=== PATIENT | male | born 1970 | race Hispanic/Latino ===

== ENCOUNTER 2021-02-15 07:41 | Day surgery (SDC) | payer BC ==
[2021-02-15] VITALS (7 sets, daily range): BP systolic 95–134; BP diastolic 42–72
[~2021-02-15] VITALS: Ht 185.4 cm; Wt 230.9 kg
[~2021-02-15 07:41] MED LIST: CHOL100053 PO; ENAL20TA18 PO; FERR325T22 PO; INSLAN SQ; METF-444 PO; SIMV40TA59 PO
[2021-02-15] MEDS ORDERED: INSU100V37 SQ (10:54)
[2021-02-15] MEDS ORDERED: AMLO-257 PO (10:54)
[2021-02-15] MEDS ORDERED: INSU100C6 SQ (10:54)
[2021-02-15] MEDS ORDERED: DULA1.5P SQ (10:54)
[2021-02-15] MEDS ORDERED: METF-446 PO (10:54)
[2021-02-15] MEDS ORDERED: PROPOFOL 10 MG/ML 20ML VIAL IV ONE (12:19)
== END 2021-02-15 13:25 | disposition home or self-care (01) ==
LOC: ENDO 07:41 → DAH 07:42 → ENDO 13:25
PROVIDERS: ATTEND Internal Medicine Gastroenterology
DX: Z12.11 Encounter for screening for malignant neoplasm of colon (principal); Z20.822 Contact with and (suspected) exposure to COVID-19; K57.30 Diverticulosis of large intestine without perforation or abscess without bleeding; I10 Essential (primary) hypertension; E11.8 Type 2 diabetes mellitus with unspecified complications; E66.01 Morbid (severe) obesity due to excess calories; E78.5 Hyperlipidemia, unspecified; E78.00 Pure hypercholesterolemia, unspecified; Z86.010 Personal history of colon polyps; Z87.891 Personal history of nicotine dependence; Z79.4 Long term (current) use of insulin; Z79.899 Other long term (current) drug therapy; Z68.44 Body mass index [BMI] 60.0-69.9, adult; Z79.82 Long term (current) use of aspirin
CPT/HCPCS: 45378; 82948; 87635; A4215; A4221; A4222; A4223; A4606; A4620; A4663; C9803; J2704; G0105

== ENCOUNTER → 2021-11-28 | Outpatient (CLI) | payer OTHER ==
[~2021-11-28] MED LIST changes: +AMLO-257 PO; -CHOL100053 PO; +DULA1.5P SQ; -FERR325T22 PO; -INSLAN SQ; +INSU100C6 SQ; +INSU100V37 SQ; -METF-444 PO; +METF-446 PO
== END ==
LOC: DTH 12:04
PROVIDERS: ATTEND Surgery
DX: E66.01 Morbid (severe) obesity due to excess calories (principal); I10 Essential (primary) hypertension; M19.91 Primary osteoarthritis, unspecified site; E11.9 Type 2 diabetes mellitus without complications; K76.0 Fatty (change of) liver, not elsewhere classified; E78.00 Pure hypercholesterolemia, unspecified; G47.33 Obstructive sleep apnea (adult) (pediatric); Z71.3 Dietary counseling and surveillance; Z68.44 Body mass index [BMI] 60.0-69.9, adult
CPT/HCPCS: 97802